=== PATIENT | female | born 1985 | race Caucasian/White ===

== ENCOUNTER 2020-01-30 14:00 | Outpatient (RCR) | payer OTHER, SELFPAY ==
--- NOTE | 2020-01-13 16:09 | OTOPEVAL ---
OCCUPATIONAL THERAPY EVALUATION REPORT 01/13/2020 Thank you for referring Carol Bustillo to [facility]. Skilled therapy indicated 2x/week for 6 weeks for deficits outlined below. Please review, sign, date and return this plan of care HERMINIA. I agree with and certify that the following plan of care is medically necessary. Referring Physician Date Referring Provider: Kade Guerra MD *OT Outpatient Evaluation Therapy Assessment Status Assessment Status Assessment Status Evaluation Outpatient Past Medical History Endocrine History Hx Diabetes Yes HEENT History Hx Eye Surgery Yes Evaluation Information Problem Diagnosis Left TFCC repair and ulnar shortening osteotomy Onset 12/30/19 Additional Evaluation Detail Patient is not to lift anything greater than 5-10 lbs with the left hand. She is wearing a custom fabricated [place] orthotic restricting forearm rotation and wrist ROM, allows elbow flexion/ extension and finger/thumb ROM. Subjective Information Patient reports being able to Query Text:As Reported By Patient/ complete ADLs and driving one- Family handed. She has been needing help at home for cooking and cleaning. Prior Level of Function Activity Level (Last 3 Months) Occupation Does not work Hand Dominance Right Comments Additional Prior Level of Function Patient lives with her Comments significant other who helps her PRN with cleaning and cooking. Pain Assessment Timing of Pain Assessment Timing of Pain Assessment Assessment Pain Scale Pain Scale Used Numeric (1 - 10) Self Report Pain Assessment Left Wrist(s) Reported Pain Level 8 Pain Description Sharp,Shooting Lowest Pain Intensity 4 Greatest Pain Intensity 8 Pain Aggravating Factors ADL's,Exercise/Activity Pain Score Pain Score 8: Self Report Upper Extremity Range of Motion Elbow/Forearm Range of Motion Right Forearm Supination - Active 80 Forearm Pronation - Active 80 Left Reason Not Measured Pain Forearm Supination - Active 25 Forearm Pronation - Active 40 Elbow/Forearm Range of Motion Comments (L) elbow flexion and extension is WNL Wrist Range of Motion Right Wrist Flexion - Active 55 Wrist Extension - Active 60 Wrist Radial Deviation - Active
--- NOTE | 2020-02-06 09:07 | PCOTNOTE ---
Patient presented to therapy this morning with complaints of worsening paresthesais in the left hand ulnar distribution as well as increased pain and discomfort with AROM exercises. She reports that the numbness is extending proximally into her palm. Her nerve conduction and follow up with the surgeon is scheduled for 03/02/20. Called Dr. Medina's office and they recommended that she call and make an appointment to come in sooner. She called and was scheduled for 02/17/20 at 11:15 AM. Plan to cancel her visits until she follows up with MD for the above concerns. No therapy was completed this date and she was sent home. Educated patient to continue to wear the [place] orthotic.
--- NOTE | 2020-02-06 09:11 | OTOPEVAL ---
OCCUPATIONAL THERAPY NOTE OF STATUS CHANGE 02/06/2020 Carol Bustillo presented to therapy this morning with complaints of worsening paresthesias in the left hand's ulnar distribution as well as increased pain and discomfort with AROM exercises. She reports that the numbness is extending proximally into her palm. Her nerve conduction and follow up with the surgeon is scheduled for 03/02/20. Called Dr. Medina's office and they recommended that she call and make an appointment to come in sooner. She called and was scheduled for 02/17/20 at 11:15 AM. Plan to cancel her visits until she follows up with for the above concerns. No therapy was completed this date and she was sent home. Educated patient to continue to wear the [place] orthotic. Thank you for referring Carol Bustillo to [facility]. Please review, sign, date and return this note HERMINIA. I agree with and certify that the following plan of care is medically necessary. Referring Physician Date Referring Provider: Jesse Medina MD
--- NOTE | 2020-02-17 15:37 | PCOTNOTE ---
Patient called today after her follow up with the surgeon. He wants her to stop therapy until her nerve conduction study in 2 weeks. She did not know the date of the study. Will continue to follow up with MD and patient as able. Plan to leave on caseload for now.
--- NOTE | 2020-03-03 07:50 | PCOTNOTE ---
Patient's nerve conduction study was pushed back until 03/12/20. Continue therapy hold.
--- NOTE | 2020-03-23 10:20 | PCOTNOTE ---
Attempted to contact patient today regarding her nerve conduction study, however she did not answer and her voice-mailbox is full.
--- NOTE | 2020-04-06 09:07 | OTOPEVAL ---
OCCUPATIONAL THERAPY DISCHARGE NOTE 04/06/2020 Carol Bustillo has not been seen for therapy since 02/02/20 due to worsening of paresthesias in the ulnar distribution of her left hand. Therapy was initially put on hold until she underwent her nerve conduction study, however the study was never completed. At this time the patient will need new orders to continue therapy. Discharging the patient with goals not met. Please review, sign, date and return this D/C Note HERMINIA. I agree with and certify that the following plan of care is medically necessary. Referring Physician Date Referring Provider: Kade Guerra MD
== END 2020-04-07 12:39 | disposition home or self-care (01) ==
LOC: ANHOT 14:00
DX: S63.592D Other specified sprain of left wrist, subsequent encounter (principal)
CPT/HCPCS: 97110; 97166; L3906